=== PATIENT | male | born 1960 | race Caucasian/White ===

== ENCOUNTER 2016-11-12 09:53 | Emergency (ER) | payer OTHER ==
[~2016-11-12] VITALS: Ht 162.6 cm; Wt 79.5 kg
[2016-11-12] MEDS ORDERED: [UNRECOGNIZED DRUG - OTHER] PO (09:59)
[2016-11-12] MEDS ORDERED: PERTUSS(ACELL),DIPH,TET VAC/PF 0.5 ML VIAL IM ONE (11:00)
[2016-11-12] MEDS ORDERED: LIDOCAINE HCL BUFFERED 1% 20 ML VIAL INJ ONE (11:00)
[2016-11-12] MEDS ORDERED: LIDOCAINE HCL 1% 20 ML VIAL INJ ONE (11:15)
[2016-11-12] MEDS ORDERED: BACITRACIN 0.9 GM PACKET OINTMENT TP ONE (12:45)
[2016-11-12 13:00] VITALS: BP 132/79
== END 2016-11-12 13:02 | disposition home or self-care (01) ==
LOC: EMS 09:57
DX: S61.011A Laceration without foreign body of right thumb without damage to nail, initial encounter (principal); I10 Essential (primary) hypertension; W26.0XXA Contact with knife, initial encounter; Y93.89 Activity, other specified; Y92.89 Other specified places as the place of occurrence of the external cause; Y99.8 Other external cause status
CPT/HCPCS: 12002; 90471; 90715; 99283; J3490